=== PATIENT | male | born 1980 ===

== ENCOUNTER 2023-01-10 06:46 | Day surgery (SDC) | payer OTHER | END 2023-01-10 11:50 | disposition home or self-care (01) | LOC: AMB-ENDOS 06:46 | PROVIDERS: ATTEND Surgery | DX: D12.2 Benign neoplasm of ascending colon (principal); D12.4 Benign neoplasm of descending colon; K57.30 Diverticulosis of large intestine without perforation or abscess without bleeding; R19.4 Change in bowel habit; K92.1 Melena; Z20.822 Contact with and (suspected) exposure to COVID-19 ==